=== PATIENT | female | born 1950 | race Two or more races ===

== ENCOUNTER 2025-01-06 18:25 | Emergency (ER) | payer OTHER ==
[~2025-01-06] VITALS: Ht 165.1 cm; Wt 65.8 kg
[2025-01-06] MEDS ORDERED: TOPROL XL50 M1 PO (18:54)
[2025-01-06] MEDS ORDERED: COZAAR50 MG PO (18:55)
[2025-01-06] MEDS ORDERED: CARDURA1 MG PO (18:55)
[2025-01-06] MEDS ORDERED: PEPCID AC20 MG PO (18:56)
[2025-01-06] MEDS ORDERED: ZOFRAN8 MG PO (18:56)
[2025-01-06] MEDS ORDERED: ONDANSETRON HCL 2 MG/ML VIAL IV ONE (19:30)
[2025-01-06] MEDS ORDERED: FAMOtidine 10 MG/ML (4ML VIAL) IV ONE (19:30)
[2025-01-06 20:23] LABS: BASO % 1.1 % (0.1-1.2); EOS # 0.12 (0.04-0.54); EOS % 2.2 % (0.7-7.0); LYMPH # 1.05 (1.18-3.74); LYMPH % 18.8 % (19.3-53.1); MEAN PLATELET VOLUME 10.70 fl (9.4-12.4); MONO # 0.32 (0.24-0.82); MONO % 5.7 % (4.7-12.5); NEUT # 4.00 (1.56-6.13); NEUT % 71.7 % (34.0-71.1); RED CELL DISTRIBUTION WIDTH 11.9 % (11.6-14.4)
[2025-01-06 20:46] LABS: ALT/SGPT 23.0 U/L (12-78); AST/SGOT 17.0 U/L (15-37); BILIRUBIN TOTAL 0.37 mg/dL (0.3-1.2); BUN CREA RATIO 26.0 (7.0-25.0); CREATININE SERUM 0.93 mg/dL (0.55-1.02); GFR 59.09; GLOBULINA 4.1 G/DL (2.4-3.5); GLUCOSE FASTING 111.0 mg/dL (65-100); OSMOLALITY SERUM 266.0 MOSM/KG (275-295)
[2025-01-06] MEDS ORDERED: 0.9 % SODIUM CHLORIDE 500 ML IV ONE (22:15)
[2025-01-06] MEDS ORDERED: DEXAMETHASONE SODIUM PHOSPHATE 4 MG/ML VIAL IV ONE (22:15)
[2025-01-06] MEDS ORDERED: KETOROLAC TROMETHAMINE 30 MG VIAL IV ONE (22:15)
[2025-01-06] MEDS ORDERED: ENALAPRILAT DIHYDRATE 2.5 MG/2 ML VIAL IV ONE (23:00)
[2025-01-07] MEDS ORDERED: NIFEDIPINE 30 MG TAB.SA.OSM PO ONE (00:30)
[2025-01-07] MEDS ORDERED: NIFEDIPINE 10 MG CAPSULE PO ONE (00:45)
== END 2025-01-07 01:11 | disposition home or self-care (01) ==
LOC: ER 18:25
PROVIDERS: Student in an Organized Health Care Education/Training Program
DX: I10 Essential (primary) hypertension (principal); G44.209 Tension-type headache, unspecified, not intractable; Z88.8 Allergy status to other drugs, medicaments and biological substances
CPT/HCPCS: 36415; 70450; 96365; 96366; 99283; J1100; J1885; J2405; J3490; J7030